=== PATIENT | female | born 1970 | race Caucasian/White ===

== ENCOUNTER → 2024-07-20 | Outpatient (CLI) | payer MEDICAID, SELFPAY ==
[2024-07-20 15:22] LABS: Absolute Lymphocyte Count 1.86 X10^3/uL (0.83-4.51); Absolute Neutrophil Count 3.5 X10^3/uL (2.0-7.7); Basophil# 0.02 X10^3/uL; Basophil% 0.3 % (0-1); Eosinophil# 0.08 X10^3/uL; Eosinophils% 1.4 % (0-5); Hematocrit 40.9 % (37-47); Hemoglobin 13.5 g/dL (12.0-15.0); Lymphocyte # 1.86 X10^3/ul (0.83-4.51); Lymphocyte % 32.1 % (19-41); Mean Corpuscular Hgb 29.6 pg (27.0-32.0); Mean Corpuscular Volume 89.7 fL (81-99); Mean Platelet Vol. 10.6 fl (6.2-12.0); Monocyte# 0.37 X10^3/uL; Monocyte% 6.4 % (0-10); NRBC Flagged by Analyzer 0 % (0-5); Neutrophil # 3.46 X10^3/uL (2.7-7.7); Neutrophil % 59.6 % (47-70); Platelet Count 323 K/mm3 (150-450); RBC Distribution Width CV 12.7 % (11.6-14.6); RBC Distribution Width SD 41.7 fl (35.1-43.9); Red Blood Count 4.56 M/mm3 (4.2-5.4); White Blood Count 5.8 K/mm3 (4.4-11.0)
[2024-07-20 17:22] LABS: ALB/GLOB Ratio 1.8 RATIO (0.9-2.4); AST(SGOT) 20 U/L (<=31); Alanine Aminotransfer ALT/SGPT 18 U/L (<=34); Albumin, Serum 4.5 g/dL (3.5-5.0); Alkaline Phosphatase 77 U/L (35-104); Anion Gap 11 (5-15); BUN 13 mg/dL (4-19); BUN/Creat Ratio 16.3 RATIO (10-20); Calcium,Total 8.7 mg/dL (7.6-11.0); Carbon Dioxide 23.9 mmol/L (21.0-32.0); Chloride 106 mmol/L (98-108); Creatinine, Serum 0.78 mg/dL (0.70-1.20); EST Glomerular Filtration Rate 90 (>60); Globulin 2.6 g/dL (2.2-4.2); Glucose 97 mg/dL (70-99); Potassium 4.4 mmol/L (3.3-5.1); Protein, Total 7.1 g/dL (5.9-8.4); Sodium Level 140 mmol/L (133-145); Total Bilirubin 0.48 mg/dL (0.00-1.30)
[2024-07-20 17:24] LABS: Erythrocyte Sedimentation Rate 1 mm/hr (0-30)
[2024-07-20 17:33] LABS: CRP < 3.00 mg/L (0.0-3.0); Rheumatoid Factor < 10.0 IU/mL (<15)
[2024-07-23 12:08] LABS: ANTINUCLEAR ANTIBODIES DIRECT Negative (Negative)
[2024-07-23 14:08] LABS: CCP IgG Antibodies 19 units (0-19)
== END | disposition home or self-care (01) ==
LOC: BIMLAB 14:08
PROVIDERS: PCP Internal Medicine; Referring Provider Internal Medicine; Visit Provider Internal Medicine
DX: M19.90 Unspecified osteoarthritis, unspecified site (principal)
CPT/HCPCS: 36415; 80053; 85025; 85652; 86038; 86140; 86200; 86225; 86431

== ENCOUNTER 2024-11-09 10:13 | Day surgery (SDC) | payer MEDICAID, SELFPAY ==
--- NOTE | 2024-11-09 10:37 | PCM.HP.STD ---
HPI - General General Date of Admission: 11/09/24 Date of Service: 11/09/24 Chief Complaint: GERD and chronic diarrhea HPI Narrative GRIFFIN BENDER, is a 54 F who presents [ GRIFFIN BENDER, is a 54 F who presents to the office today for - states she had a colon & EGD >5 years ago - reports she is due for a colonoscopy - h/o EGD has been on Prilosec for many years - reports a long history of gut issues - just moved to [place], establishing with new doctors - always feels fatigued - denies any dysphagia - denies any N/V - always had diarrhea - experiences for rectal bleeding - denies any weight loss - Mom with Crohn's - denies any family h/o colon CA - taking NSAIDS makes rectal bleeding worse - occasional marijuana and alcohol use The patient is a 54-year-old female presenting with gastrointestinal symptoms and seeking a fresh evaluation of her gut health. The patient has a history of Gastroesophageal Reflux Disease (GERD) and was previously on Prilosec. She stopped the medication due to concerns about long-term use but resumed it under her new doctor's guidance. Despite this, she continues to experience gut irritation and diarrhea. Chronic diarrhea is a persistent issue, with stools often loose and occasionally bloody. This condition is worsened by antibiotic use for a sinus infection. The patient is sensitive to medications, which aggravate her gastrointestinal symptoms. The patient reports abdominal bloating and distension, describing her abdomen as hard and large. She has been menopausal since age 46, with associated weight gain. Her family history includes Crohn's disease, as her mother was diagnosed with it. Attestation: Documentation on this patient encounter was supported using ambient scribe technology/ voice AI technology. The patient consented to recording for the purpose of documenting the encounter. Provider reviewed content of the generated note prior to signature. [facility] Medical History Alcohol use Post-menopausal Gastric reflux Smoker Upper respiratory infection Obstructive sleep apnea Gastritis Colon cancer screening Arthritis Home Medications ?Medication ?Instructions ?Recorded ?Last Taken ?Type estradiol 1 mg tablet 1 mg PO QDAY 07/20/24 Unknown History medroxyprogesterone 5 mg tablet 5 mg PO QDAY 07/20/24 Unknown History omeprazole 40 mg capsule,delayed 40 mg PO QDAY #90 caps 07/20/24 Unknown Rx release peg 3350-electrolytes 236 240 ml PO Q10M #4,000 mL 08/06/24 Unknown Rx gram-22.74 gram-6.74 gram-5.86 gram solution (Golytely) Allergy/AdvReac Type Severity Reaction Status Date / Time No Known Allergies Allergy Verified 11/09/24 10:37 Family History Mother Anxiety Arthritis Acute Crohn's disease High cholesterol Melanoma Respiratory disease Other History of Surgical History History of esophagogastroduodenoscopy (EGD) History of colonoscopy History of Social History adopted: No household members: other details: mother current occupational status: employed Smoking Status: Current some day smoker tobacco type: cigarettes details: weekly cocktails substance use type: marijuana what type of physical activity do you participate in: none and walking seatbelt use: always do you feel safe at home: Yes ROS Constitutional Constitutional: Denies fatigue, fever(s), poor appetite, weight gain or weight loss Gastrointestinal Gastrointestinal: Denies belching, bloating, change in bowel habits, change in stool character, chewing difficulty, coffee ground emesis, constipation, cramping, diarrhea, dyspepsia, dysphagia, early satiety, excessive flatus, fecal incontinence, heartburn, hematemesis, hematochezia, hemorrhoids, loose stools, melena, nausea, odynophagia, rectal bleeding, tenesmus, vomiting or weight changes Physical Exam Const alert, oriented x3, no apparent distress and healthy appearing General Appearance: cooperative GI normal to inspection, nondistended, normoactive bowel sounds, soft to palpation, non-tender and non-distended Percussion: normal to percussion Rectal Exam: deferred Assessment & Plan Assessment/Plan (1) Abdominal bloating: (2) Chronic diarrhea: (3) GERD (gastroesophageal reflux disease): (4) IBS (irritable bowel syndrome): PLAN: Assessment and Plan Assessment and Plan (1) GERD (gastroesophageal reflux disease): Status: Acute Plan: The patient will continue on omeprazole 40 mg once daily, as it is safe for long-term use. Further evaluation with a emergency management consultant is planned, including scheduling for a colonoscopy and upper endoscopy to assess the gastrointestinal tract comprehensively. (2) Chronic diarrhea: Status: Chronic Plan: The patient will undergo a colonoscopy to investigate the cause of chronic diarrhea. The impact of antibiotics and medication sensitivity on her symptoms will be considered during the evaluation. (3) Abdominal bloating: Status: Acute Plan: The patient will have an upper endoscopy to evaluate the cause of abdominal bloating and distension. The procedure will help determine if there are any underlying gastrointestinal issues contributing to her symptoms. (4) Family history of Crohn's disease: Status: Acute Plan: Given the family history of Crohn's disease, the patient will be monitored closely for any signs suggestive of inflammatory bowel disease. The upcoming colonoscopy will aid in assessing any potential hereditary gastrointestinal conditions. Medications: New peg 3350-electrolytes 236-22.74-6.74 -5.86 gram (Golytely) take as directed for split dose bowel prep 240 mL PO Q10M 4,000 mL 0RF Plan The patient is a 54-year-old female with a history of Gastroesophageal Reflux Disease GERD) presenting with gastrointestinal symptoms including chronic diarrhea and abdominal bloating. She is currently on omeprazole, which has provided some relief, but symptoms persist. The chronic diarrhea, characterized by loose stools and occasional blood, may be exacerbated by antibiotic use and medication sensitivity. The abdominal bloating and distension are significant, with the patient describing her abdomen as hard and large. The family history of Crohn's disease is notable, given her mother's diagnosis and treatment. The patient's menopausal status and associated weight gain are also contributing factors to her current health concerns. Patient Instructions: - Continue taking omeprazole 40 mg once daily as prescribed. - Follow up with the emergency management consultant for scheduled colonoscopy and upper endoscopy. - Monitor for any changes in symptoms and report them to your healthcare provider. Smoking cessation recommended - https://www.cdc.gov/tobacco/about/how-to-quit.html ]
[2024-11-09 10:39] VITALS: BP 112/80; PULSE 79; RESP 12; TEMP 36.7; O2SAT 95; BMI 30.2
--- NOTE | 2024-11-09 10:40 | PCM.PRE.AN2 ---
ASA Classification* ASA Classification ASA Classification: 2 Assessment & Plan Anesthesia* Anesthesia Assessment Anesthesia Assessment: Discussed sedation and/or anesthesia options, risks, benefits, and alternatives with patient/parents/legal guardian/POA. Questions invited. The patient/parents/legal guardian/POA seems to understand and agrees to proceed with anesthesia plan. Reviewed the physical assessment, medical history, allergy history and patient home medications list prior to surgery/procedure/anesthetic and documented any changes. Performed airway and anesthesia risk assessments. Anesthesia Type Anesthesia Type: MAC Anesthesia Focused Assessment* Airway Assessment Mouth opens: >3 cm Mallampati Score: II Labs Anesthesia Preop lab: CBC WBC, (4.4-11.0) 5.8 K/mm3 07/20/24, 14:08 RBC, (4.2-5.4) 4.56 M/mm3 07/20/24, 14:08 Hgb, (12.0-15.0) 13.5 g/dL 07/20/24, 14:08 Hct, (37-47) 40.9 % 07/20/24, 14:08 Plt Count, (150-450) 323 K/mm3 07/20/24, 14:08 CHEMISTRY Potassium, (3.3-5.1) 4.4 mmol/L 07/20/24, 14:08 Sodium, (133-145) 140 mmol/L 07/20/24, 14:08 BUN, (4-19) 13 mg/dL 07/20/24, 14:08 Creatinine, (0.70-1.20) 0.78 mg/dL 07/20/24, 14:08 Glucose, (70-99) 97 mg/dL 07/20/24, 14:08 COAG Pre-Assessment Diagnosis/Proposed Procedure Planned Operative Procedure(s): EGD, COLONOSCOPY Anesthesia History 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 When Was Last Pacemaker Check QUESTION #4 FULL TEXT: You/Your Family Experience fever (hyperthermia) with Anesthesia Last Oral Intake Last Oral intake: Last Oral Intake NPO since Meds taken in AM with sips of water? Meds patient instructed to take am of surgery PONV PONV - snath handle assembler: PONV - snath handle assembler Female Yes 11/05/24 10:30 HX of Motion Sickness Yes 11/05/24 10:30 HX of N/V After Surgery No 11/05/24 10:30 Non-Smoker No 11/05/24 10:30 Duration of Surgery greater No 11/05/24 10:30 than 60 minutes Number of Risk Factors 2 11/05/24 10:30 PONV Score Moderate Risk 11/05/24 10:30 Height & Weight Height & Weight: Anesthesia: Height & Weight Height 5 ft 4 in 08/06/24 09:29 Respiratory Assessment Respiratory Assessment - snath handle assembler: Respiratory Tract Infection Hx - snath handle assembler Hx Respiratory Tract Infection No 11/05/24 10:30 STOP Sleep Apnea STOP Sleep Apnea - snath handle assembler: STOP Sleep Apnea - snath handle assembler Hx Hypertension No 11/05/24 10:30 Hx Sleep Apnea Yes 11/05/24 10:30 CPAP No 11/05/24 10:30 BIPAP No 11/05/24 10:30 Do you snore loudly (louder than talking or can be heard Do you often feel tired/ fatigued/ sleepy during daytime? Has anyone observed you stop breathing during sleep? STOP Results Positive 11/05/24 10:30 QUESTION #5 FULL TEXT : Do you snore loudly (louder than talking or can be heard through closed doors)? 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 Specify any problems Hx of Preganancy in last 3 No 11/05/24 10:30 Months Nurse Filling Out Transfusion DSCHRIBER 11/05/24 10:30 & Questions: Date: 11/05/24 11/05/24 10:30 Time: 10:30 11/05/24 10:30 Patient unable to answer at this time (ie. confused, unrespo /Reproduction History /Reproductive History - snath handle assembler: /Reproductive Hx- snath handle assembler Hx Now Gestational Age (in weeks): EDC: Hx Hx Para Hx Section SAB Active Medications Active Medications: Current Medications Generic Name Dose Route Start Last Admin Trade Name Freq PRN Reason Stop Dose Admin Lactated Ringer's 1,000 mls @ 15 mls/hr 11/09/24 10:30 IV .Q48H SHANNON PFSH Medical History Alcohol use Post-menopausal Gastric reflux Smoker Upper respiratory infection Obstructive sleep apnea Gastritis Colon cancer screening Arthritis Home Medications ?Medication ?Instructions ?Recorded ?Last Taken ?Type estradiol 1 mg tablet 1 mg PO QDAY 07/20/24 11/07/24 History medroxyprogesterone 5 mg tablet 5 mg PO QDAY 07/20/24 11/07/24 History omeprazole 40 mg capsule,delayed 40 mg PO QDAY #90 caps 07/20/24 11/07/24 Rx release peg 3350-electrolytes 236 240 ml PO Q10M #4,000 mL 08/06/24 11/09/24 Rx gram-22.74 gram-6.74 gram-5.86 gram solution (Golytely) Allergy/AdvReac Type Severity Reaction Status Date / Time No Known Allergies Allergy Verified 11/09/24 10:37 Family History Mother Anxiety Arthritis Acute Crohn's disease High cholesterol Melanoma Respiratory disease Other History of Surgical History History of esophagogastroduodenoscopy (EGD) History of colonoscopy History of Social History adopted: No household members: other details: mother current occupational status: employed Smoking Status: Current some day smoker tobacco type: cigarettes details: weekly cocktails substance use type: marijuana what type of physical activity do you participate in: none and walking seatbelt use: always do you feel safe at home: Yes Review of Systems (Anesthesia) ROS Narrative System reviewed and no additional complaints, except as documented.
[2024-11-09] MEDS: Lactated Ringers 1,000 ML 15 ML IV (10:50)
--- NOTE | 2024-11-09 11:30 | COLBX_PTH ---
PATIENT: GRIFFIN BENDER LOC: EN U#:[id number] AGE/SX: 54/F ROOM: RE11/09/[address]: Dr. Emilio Whitney DO : 1970 BED: DIS: 11/09/2024 SPEC #: [id number] RECD: 11/09/24 13:16 STATUS: KEVON REArthur #: [id number] OLY: 11/09/24 11:[address]: Emilio Whitney DEPT: SURGICAL PATHOLOGY RECD BY: Abad Pineda ENTERED: 11/09/24 14:16 SP TYPE: COLON BX OT DR: Dr. Suzie Ennis MD Tissues: A - Gastric mucous membrane B - Duodenum, NOS C - Ileum, NOS D - Cecum, NOS E - COLON BIOPSY Procedures: Surgery Specimen Level IV HEADER OPERATION: Colonoscopy, EGD with biopsy PRE-OP DIAGNOSIS: Abdominal bloating, chronic diarrhea, GERD, irritable bowel syndrome TISSUE SUBMITTED: A- Gastric body biopsy, B- Duodenum biopsy, C- Terminal ileum biopsy,D- Cecum biopsy, E- Random colon biopsy MICROSCOPIC DIAGNOSIS A. Gastric body, biopsy: * Oxyntic mucosa with mild foveolar hyperplasia. * Negative for Helicobacter-like organisms (H&E). B. Duodenum, biopsy: * Daiana gland hyperplasia with focal gastric mucin cell metaplasia, suggestive of peptic injury. * Negative for increased intraepithelial lymphocytes. C. Terminal ileum, biopsy: * No specific pathologic change. D. Cecum, biopsy: * No specific pathologic change. E. Colon, random, biopsy: * Patchy mildly increased intraepithelial lymphocytes - see note. Note: The intraepithelial lymphocytosis raises consideration of lymphocytic (microscopic) colitis. No thickening of the subepithelial collagen table is observed. The histologic differential diagnosis also includes mild/resolving infection and medication injury reaction. Recommend correlation with clinical and endoscopic findings. MICROSCOPIC DESCRIPTION Slides are reviewed. GROSS DESCRIPTION A. Received in fixative is one container labeled with the patient's name and designated Gastric body biopsy. The specimen consists of one irregular fragment of richardson tissue that measures 0.7 cm. The specimen is totally submitted in one cassette. B. Received in fixative is one container labeled with the patient's name and designated Duodenum biopsy. The specimen consists of two irregular fragments of richardson tissue that measure 0.3 and 0.6 cm. The specimen is totally submitted in one cassette. C. Received in fixative is one container labeled with the patient's name and designated Terminal ileum biopsy. The specimen consists of two irregular fragments of richardson tissue that measure 0.3 and 0.4 cm. The specimen is totally submitted in one cassette. D. Received in fixative is one container labeled with the patient's name and designated Cecum biopsy. The specimen consists of three irregular fragments of richardson tissue that measure 0.1 to 0.4 cm. The specimen is totally submitted in one cassette. E. Received in fixative is one container labeled with the patient's name and designated Random colonic biopsy. The specimen consists of multiple irregular fragments of richardson tissue that in aggregate measure 1.5 x 0.5 x 0.2 cm. The specimen is totally submitted in one cassette. KS 11/09/2024 CPT:60696x8
[2024-11-09 12:43] VITALS: BP 112/80; BP 93/60; PULSE 72; RESP 16; TEMP 36.4; O2SAT 96
[2024-11-09 12:45] VITALS: BP 112/80; BP 87/49; PULSE 74; RESP 16; O2SAT 96
--- NOTE | 2024-11-09 12:45 | OP.PROVAT_ITS ---
11/09/2024 Suzie Ennis MD [address] [place] [address] [place] [address] Re : Upper GI endoscopy procedure for Mary Restrepo Dear Dr. Ennis This procedure was performed on Saturday, November 09, 2024. My impressions and recommendations are as follows: Impressions : - Normal esophagus. - Small hiatal hernia. - Erythematous mucosa in the gastric body. Biopsied. - Normal examined duodenum. Biopsied. Recommendations : - Discharge patient to home. - Resume previous diet. - Continue present medications. - Await pathology results. My findings are described in the full procedure note, which is enclosed. If I can be of further assistance, please feel free to contact me at . Sincerely, Emilio Whitney, 11/09/2024 12:45:02 PM This report has been signed electronically.
--- NOTE | 2024-11-09 12:45 | OP.EGD_ITS ---
Patient Name: Mary Restrepo Procedure Date: 11/09/2024 12:15 PM Date of : 1970 Age: 54 Procedure: Upper GI endoscopy Indications: Epigastric abdominal pain, Functional Dyspepsia Providers: Emilio Whitney DO Referring MD: Suzie Ennis MD Medicines: Monitored Anesthesia Care Patient Profile: This is a 54 year old female. Refer to note in patient chart for documentation of history and physical. Patient has symptoms of chronic abdominal cramping, chronic abdominal distention, chronic epigastric abdominal pain and acute dyspepsia. Complications: No immediate complications. Procedure: Pre-Anesthesia Assessment: - Prior to the procedure, a History and Physical was performed, and patient medications and allergies were reviewed. The patient is competent. The risks and benefits of the procedure and the sedation options and risks were discussed with the patient. All questions were answered and informed consent was obtained. Patient identification and proposed procedure were verified by the physician in the pre-procedure area. Mental Status Examination: alert and oriented. Airway Examination: normal oropharyngeal airway and neck mobility. Respiratory Examination: clear to auscultation. CV Examination: normal. Prophylactic Antibiotics: The patient does not require prophylactic antibiotics. Prior Anticoagulants: The patient has taken no anticoagulant or antiplatelet agents except for NSAID medication. ASA Grade Assessment: II - A patient with mild systemic disease. After reviewing the risks and benefits, the patient was deemed in satisfactory condition to undergo the procedure. The anesthesia plan was to use monitored anesthesia care (MAC). Immediately prior to administration of medications, the patient was re-assessed for adequacy to receive sedatives. The heart rate, respiratory rate, oxygen saturations, blood pressure, adequacy of pulmonary ventilation, and response to care were monitored throughout the procedure. The physical status of the patient was re-assessed after the procedure. After obtaining informed consent, the endoscope was passed under direct vision. Throughout the procedure, the patient's blood pressure, pulse, and oxygen saturations were monitored continuously. The Colonoscope was introduced through the mouth, and advanced to the fourth part of the duodenum. Small bowel enteroscopy was deemed necessary. The upper GI endoscopy was accomplished without difficulty. The patient tolerated the procedure well. Scope In: 12:24:35 PM Scope Out: 12:27:07 PM Total Procedure Duration Time 0 hours 2 minutes 32 seconds Findings: The examined esophagus was normal. A small hiatal hernia was present. Patchy mildly erythematous mucosa without bleeding was found in the gastric body. Biopsies were taken with a cold forceps for histology. Biopsies were taken with a cold forceps for Helicobacter pylori testing. Verification of patient identification for the specimen was done. Estimated blood loss was minimal. The examined duodenum was normal. Biopsies were taken with a cold forceps for histology. Verification of patient identification for the specimen was done. Estimated blood loss was minimal. Impression: - Normal esophagus. - Small hiatal hernia. - Erythematous mucosa in the gastric body. Biopsied. - Normal examined duodenum. Biopsied. Recommendation: - Discharge patient to home. - Resume previous diet. - Continue present medications. - Await pathology results. Procedure Code(s): --- Professional --- 98889, Small intestinal endoscopy, enteroscopy beyond second portion of duodenum, not including ileum; with biopsy, single or multiple CPT copyright 2021 [employer]. All rights reserved. The codes documented in this report are preliminary and upon form drafter review may be revised to meet current compliance requirements. Emilio Whitney DO 11/09/2024 12:45:02 PM This report has been signed electronically. Number of Addenda: 0 Note Initiated On: 11/09/2024 12:15 PM
[2024-11-09 12:50] VITALS: BP 112/80; BP 90/67; BP 93/60; PULSE 72; PULSE 79; RESP 16; TEMP 36.4; O2SAT 94; O2SAT 97
--- NOTE | 2024-11-09 12:50 | PCM.POST.ANE ---
Anesthesia: Postop Eval I Current Vital Signs Temperature: 97.5 F Pulse Rate: 79 Blood Pressure: 93/60 Respiratory Rate: 16 Pulse Ox: 97 Oxygen Delivery Method: Room Air Assessment Airway patent: Yes Spontaneous unlabored respirations: Yes Mental status: Awake and Calm nausea: No Vomiting: No Anesthesia Complication: No Fluid Hydration Crystalloid volume administer (ml): 800 Total IV fluid infused: 800 Progress Note Anesthesia document: Postop Eval 1 completed: Yes
--- NOTE | 2024-11-09 12:52 | OP.PROVAT_ITS ---
11/09/2024 Suzie Ennis MD [address] [place] [address] [place] [address] Re : Colonoscopy procedure for Mary Restrepo Dear Dr. Ennis This procedure was performed on Saturday, November 09, 2024. My impressions and recommendations are as follows: Impressions : - Diverticulosis in the recto-sigmoid colon, in the sigmoid colon, in the descending colon and in the transverse colon. - Congested mucosa in the recto-sigmoid colon, in the sigmoid colon, in the descending colon, at the splenic flexure and in the cecum. Biopsied. - Congested mucosa in the terminal ileum. Biopsied. Recommendations : - Discharge patient to home. - Resume previous diet. - Continue present medications. - Await pathology results. - Repeat colonoscopy in 5 years for surveillance. My findings are described in the full procedure note, which is enclosed. If I can be of further assistance, please feel free to contact me at . Sincerely, Emilio Whitney, 11/09/2024 12:51:59 PM This report has been signed electronically.
--- NOTE | 2024-11-09 12:52 | OP.COLON_ITS ---
Patient Name: Mary Restrepo Procedure Date: 11/09/2024 12:27 PM Date of : 1970 Age: 54 Procedure: Colonoscopy Indications: Generalized abdominal pain, Abdominal pain in the left lower quadrant, Abdominal pain in the right lower quadrant, Abdominal pain in the right upper quadrant, Clinically significant diarrhea of unexplained origin Providers: Emilio Whitney DO Referring MD: Suzie Ennis MD Medicines: Monitored Anesthesia Care Patient Profile: This is a 54 year old female. Refer to note in patient chart for documentation of history and physical. Patient has symptoms of chronic abdominal cramping, chronic abdominal distention, chronic epigastric abdominal pain and acute dyspepsia. Last Colonoscopy: date unknown. Unable to locate last colonoscopy report. Complications: No immediate complications. Procedure: Pre-Anesthesia Assessment: - Prior to the procedure, a History and Physical was performed, and patient medications and allergies were reviewed. The patient is competent. The risks and benefits of the procedure and the sedation options and risks were discussed with the patient. All questions were answered and informed consent was obtained. Patient identification and proposed procedure were verified by the physician in the pre-procedure area. Mental Status Examination: alert and oriented. Airway Examination: normal oropharyngeal airway and neck mobility. Respiratory Examination: clear to auscultation. CV Examination: normal. Prophylactic Antibiotics: The patient does not require prophylactic antibiotics. Prior Anticoagulants: The patient has taken no anticoagulant or antiplatelet agents except for NSAID medication. ASA Grade Assessment: II - A patient with mild systemic disease. After reviewing the risks and benefits, the patient was deemed in satisfactory condition to undergo the procedure. The anesthesia plan was to use monitored anesthesia care (MAC). Immediately prior to administration of medications, the patient was re-assessed for adequacy to receive sedatives. The heart rate, respiratory rate, oxygen saturations, blood pressure, adequacy of pulmonary ventilation, and response to care were monitored throughout the procedure. The physical status of the patient was re-assessed after the procedure. After I obtained informed consent, the scope was passed under direct vision. Throughout the procedure, the patient's blood pressure, pulse, and oxygen saturations were monitored continuously. The Colonoscope was introduced through the anus and advanced to the terminal ileum. The colonoscopy was performed without difficulty. The patient tolerated the procedure well. The quality of the bowel preparation was adequate. The terminal ileum, ileocecal valve, appendiceal orifice, and rectum were photographed. Scope In: 12:28:21 PM Scope Withdrawal Time 0 hours 6 minutes 46 seconds Scope Out: 12:36:51 PM Total Procedure Duration Time 0 hours 8 minutes 30 seconds Findings: The perianal and digital rectal examinations were normal. A few small-mouthed diverticula were found in the recto-sigmoid colon, sigmoid colon, descending colon and transverse colon. An area of mildly congested mucosa was found in the recto-sigmoid colon, in the sigmoid colon, in the descending colon, at the splenic flexure and in the cecum. Biopsies were taken with a cold forceps for histology. Verification of patient identification for the specimen was done. Estimated blood loss was minimal. A patchy area of the terminal ileum was congested. Biopsies were taken with a cold forceps for histology. Verification of patient identification for the specimen was done. Estimated blood loss was minimal. Impression: - Diverticulosis in the recto-sigmoid colon, in the sigmoid colon, in the descending colon and in the transverse colon. - Congested mucosa in the recto-sigmoid colon, in the sigmoid colon, in the descending colon, at the splenic flexure and in the cecum. Biopsied. - Congested mucosa in the terminal ileum. Biopsied. Recommendation: - Discharge patient to home. - Resume previous diet. - Continue present medications. - Await pathology results. - Repeat colonoscopy in 5 years for surveillance. Procedure Code(s): --- Professional --- 45148, Colonoscopy, flexible; with biopsy, single or multiple CPT copyright 2021 [employer]. All rights reserved. The codes documented in this report are preliminary and upon agriculture scientist review may be revised to meet current compliance requirements. Emilio Whitney DO 11/09/2024 12:51:59 PM This report has been signed electronically. Number of Addenda: 0 Note Initiated On: 11/09/2024 12:27 PM
[2024-11-09 12:55] VITALS: BP 100/87; BP 112/80; PULSE 72; RESP 16; TEMP 36.2; O2SAT 98
[2024-11-09 13:07] VITALS: BP 112/80
--- NOTE | 2024-11-09 13:18 | PCM.POSTANE2 ---
Anesthesia Postop Eval I Sum Postop Eval Completion status Anesthesia document: Postop Eval 1 completed: Yes Anesthesia Postop Eval I Summary Anesthesia Postop Eval I Summary: Anesthesia Postop Eval I: Assessment Summary Airway patent Yes 11/09/24 12:50 [email or web address] Spontaneous unlabored Yes 11/09/24 12:50 [email or web address] respirations Mental status Awake,Calm 11/09/24 12:50 [email or web address] nausea No 11/09/24 12:50 [email or web address] Vomiting No 11/09/24 12:50 [email or web address] Anesthesia Postop Eval I: Fluid Summary Crystalloid volume administer 800 11/09/24 12:50 [email or web address] (ml) Colloids volume administered ( ml) Blood Product volume administered (ml) Total IV fluid infused 800 11/09/24 12:50 [email or web address] Anesthesia Postop Eval I: Summary Notes Anesthesia Complication No 11/09/24 12:50 [email or web address] Anesthesia Complication Comment: Post-operative progress note Anesthesia: Postop Eval II Evaluation Mental status: Awake Pain Level: 0 nausea: No Vomiting: No
== END 2024-11-09 13:13 | disposition home or self-care (01) ==
LOC: EN 10:15 → AC 10:18
PROVIDERS: PCP Internal Medicine; Referring Provider Internal Medicine; Visit Provider Internal Medicine Gastroenterology
PROC: 0DJD8ZZ Inspection of Lower Intestinal Tract, Via Natural or Artificial Opening Endoscopic (ICD-10-PCS; CPT 45378; principal; 2024-11-09 11:25)
DX: K21.9 Gastro-esophageal reflux disease without esophagitis (principal); K44.9 Diaphragmatic hernia without obstruction or gangrene; R14.0 Abdominal distension (gaseous); K57.30 Diverticulosis of large intestine without perforation or abscess without bleeding; K52.9 Noninfective gastroenteritis and colitis, unspecified; Z84.89 Family history of other specified conditions; Z79.899 Other long term (current) drug therapy; F17.210 Nicotine dependence, cigarettes, uncomplicated; K31.89 Other diseases of stomach and duodenum; K63.89 Other specified diseases of intestine
CPT/HCPCS: 44361; 88305; J2405